=== PATIENT | female | born 1995 | race Caucasian/White ===

== ENCOUNTER 2019-10-08 17:25 | Emergency (ER) | payer OTHER ==
[2019-10-08] MEDS ORDERED: predniSONE 20 MG TABLET (UD) PO ONE (18:05)
[2019-10-08] MEDS ORDERED: diphenhydrAMINE HCL 25 MG CAPSULE (FP) PO ONE ×2 (18:05→19:05)
[2019-10-08 18:08] VITALS: BP 109/72; PULSE 94; TEMP 98.3; BMI 20.1
--- NOTE | 2019-10-08 18:09 | PDOC ---
Rapid Medical Evaluation Time Seen by Provider: 10/08/19 18:04 Medical Evaluation: 10/08/19 18:06 CC: swollen R eye Pt is a 24 y/o female who presents with a swollen right eye and a large wheal on her R arm. She does not know of any contacts, detergents, foods that could have caused this. She denies any tongue/mouth swelling or difficulty breathing. Brief exam: R eye with lower lid edema, EOMI, R arm with large wheal appreciated. No stridor. Good air entry b/l with no adventitious lung sounds Orders: Benadryl, Prednisone To ED for further evaluation Discharge Disposition - Diagnosis Allergic reaction - Referrals - Patient Instructions - Post Discharge Activity
[2019-10-08] MEDS ORDERED: predniSONE 20 MG TABLET (UD) ONE (19:05)
--- NOTE | 2019-10-08 19:10 | PDOC ---
History of Present Illness - General Chief Complaint: Allergic Reaction Stated Complaint: SWOLLEN EYE Time Seen by Provider: 10/08/19 18:04 History Source: Patient - History of Present Illness Initial Comments: 10/08/19 19:15 Chief complaint: Swollen eye and itching Patient is a healthy 24-year-old female who states she woke up this morning with swelling below the right eye. She is developed rash and itching to the right upper arm. No fever, no difficulty breathing, no swelling to the throat. She states she had itching to her back about 2 weeks ago, but it went away on its own and she did not have to see a doctor. Patient has not taken any medicines and has no known allergies GENERAL/CONSTITUTIONAL: No fever, weakness. dizziness HEAD, EYES, EARS, NOSE AND THROAT: No change in vision. No ear pain or discharge. No sore throat. CARDIOVASCULAR: No chest pain RESPIRATORY: No shortness of breath or cough GASTROINTESTINAL: No pain, nausea, vomiting, diarrhea or constipation GENITOURINARY: No dysuria MUSCULOSKELETAL: No neck or back pain SKIN: + Itchy rash NEUROLOGIC: No headache, vertigo, loss of consciousness, or loss of sensation. GENERAL: The patient is awake, alert, and fully oriented, in no acute distress. HEAD: Normal with no signs of trauma. EYES: Pupils equal, round and reactive to light, sclera anicteric, conjunctiva clear. Some swelling to the lower right eyelid ENT: pharynx: no erythema, no exudate, uvula midline NECK: supple CHEST: clear, nontender, rr ABD: soft, nontender BACK: no tenderness or signs of injury EXTREMITIES: Right upper extremity with hives, blanchable, no gross swelling. Rest of extremities, normal range of motion, no edema. NEUROLOGICAL: Normal speech, normal gait. SKIN: Warm, Dry Past History - Past Medical History Allergies/Adverse Reactions: Allergies Allergy/AdvReac Type Severity Reaction Status Date / Time No Known Allergies Allergy Verified 10/08/19 18:08 Home Medications: Ambulatory Orders predniSONE [Deltasone -] 40 mg PO DAILY #8 tablet 10/08/19 COPD: No - Psycho Social/Smoking Cessation Hx Smoking History: Never smoked *Physical Exam - Vital Signs Last Vital Signs Temp Pulse Resp BP Pulse Ox 98.3 F 94 H 20 109/72 98 10/08/19 18:05 10/08/19 18:05 10/08/19 18:05 10/08/19 18:05 10/08/19 18:05 ED Treatment Course - Medications Given in the ED: ED Medications Discontinued Medications Generic Name Dose Route Start Last Admin Trade Name Harvinder PRN Reason Stop Dose Admin Diphenhydramine HCl 50 mg 10/08/19 18:05 10/08/19 19:09 Benadryl - PO 10/08/19 18:06 50 mg ONCE ONE Administration Prednisone 60 mg 10/08/19 18:05 10/08/19 19:09 Deltasone - PO 10/08/19 18:06 60 mg ONCE ONE Administration Medical Decision Making - Medical Decision Making 10/08/19 19:18 Healthy 24-year-old female that had some itching to her back and rash 2 weeks ago now with swelling under the right eye and areas of hives to the right upper extremity. No respiratory involvement, no difficulty in speaking and no tightness in her throat. Patient was ordered Benadryl 50 and prednisone 60 mg from triage. Will observe and reassess Patient feels better, symptoms are improving. Discussed issues, findings, results, applicable medications and treatments and follow-up. All these were understood and all questions were answered 10/08/19 20:01 Discharge - Discharge Information Problems reviewed: Yes Clinical Impression/Diagnosis: Allergic reaction Qualifiers: Encounter type: initial encounter Qualified Code(s): T78.40XA - Allergy, unspecified, initial encounter Condition: Stable Disposition: HOME - Admission No - Additional Discharge Information Prescriptions: predniSONE [Deltasone -] 40 mg PO DAILY #8 tablet - Follow up/Referral Referrals: ON STAFF,NOT [Primary Care Provider] - - Patient Discharge Instructions Patient Printed Discharge Instructions: DI for General Allergic Reactions Additional Instructions: Take benadryl 25-50 mg every 4 hours for itching take prednisone 40 mg once daily for anther 4 days, start tomorrow take pepcid 20 mg once daily which will help with the reaction and protect your stomach for any upset from the prednisone return to the er if short of breath, difficulty breathing, or getting worse. otherwise follow up with your doctor in 2-3 days - Post Discharge Activity
== END 2019-10-08 20:09 | disposition home or self-care (01) ==
LOC: JERFT 17:25
DX: T78.40XA Allergy, unspecified, initial encounter (principal); H02.842 Edema of right lower eyelid; L50.9 Urticaria, unspecified; X58.XXXA Exposure to other specified factors, initial encounter
CPT/HCPCS: 99281-25

== ENCOUNTER 2019-11-18 19:47 | Emergency (ER) | payer OTHER ==
[2019-11-18 20:20] VITALS: BP 117/72; PULSE 84; TEMP 97.9; BMI 19.8
--- NOTE | 2019-11-18 21:56 | PDOC ---
History of Present Illness - General Chief Complaint: Cold Symptoms Stated Complaint: SICK Time Seen by Provider: 11/18/19 21:56 History Source: Patient - History of Present Illness Initial Comments: 11/18/19 21:57 Chief complaint: Cold symptoms Patient is a healthy 24-year-old female with 1 day of cold symptoms, patient had a fever last night, none today she has a runny nose and cough and she states it hurts when she coughs. Patient is eating and drinking and does not appear acutely ill. GENERAL/CONSTITUTIONAL: No fever, weakness. dizziness HEAD, EYES, EARS, NOSE AND THROAT: No change in vision. No ear pain or discharge. No sore throat. CARDIOVASCULAR: No chest pain RESPIRATORY: No shortness of breath or cough GASTROINTESTINAL: No pain, nausea, vomiting, diarrhea or constipation GENITOURINARY: No dysuria MUSCULOSKELETAL: No neck or back pain SKIN: No rash NEUROLOGIC: No headache, vertigo, loss of consciousness, or loss of sensation. GENERAL: The patient is awake, alert, and fully oriented, in no acute distress. HEAD: Normal with no signs of trauma. EYES: Pupils equal, round and reactive to light, sclera anicteric, conjunctiva clear. ENT: pharynx: no erythema, no exudate, uvula midline NECK: supple CHEST: clear, nontender, rr ABD: soft, nontender BACK: no tenderness or signs of injury EXTREMITIES: Normal range of motion, no edema. NEUROLOGICAL: Normal speech, normal gait. SKIN: Warm, Dry Past History - Past Medical History Allergies/Adverse Reactions: Allergies Allergy/AdvReac Type Severity Reaction Status Date / Time No Known Allergies Allergy Verified 11/18/19 20:20 Home Medications: Ambulatory Orders predniSONE [Deltasone -] 40 mg PO DAILY #8 tablet 10/08/19 COPD: No - Psycho Social/Smoking Cessation Hx Smoking History: Never smoked Have you smoked in the past 12 months: No Information on smoking cessation initiated: No Hx Alcohol Use: No Drug/Substance Use Hx: No *Physical Exam - Vital Signs Last Vital Signs Temp Pulse Resp BP Pulse Ox 97.9 F 84 18 117/72 100 11/18/19 20:17 11/18/19 20:17 11/18/19 20:17 11/18/19 20:17 11/18/19 20:17 Medical Decision Making - Medical Decision Making 11/18/19 21:58 Patient with fever last night, no fever today, has cold symptoms. Patient does not appear acutely ill she is not coughing during the exam and she has an otherwise normal exam for except for nasal congestion. Patient is eating and drinking. Patient is mostly concerned to see if she has "coronavirus". She wanted to get a test. I explained to her that there is no test give her in the ER. it was explained to patient that she screen negative but that if she felt sick she should stay home. She will be given information regarding Department of Health to call if she has any other questions. Discussed issues, findings, results, applicable medications and treatments and follow-up. All these were understood and all questions were answered 11/18/19 21:59 Discharge - Discharge Information Problems reviewed: Yes Clinical Impression/Diagnosis: Upper respiratory infection Qualifiers: URI type: unspecified URI Qualified Code(s): J06.9 - Acute upper respiratory infection, unspecified Condition: Stable Disposition: HOME - Admission No - Follow up/Referral Referrals: ON STAFF,NOT [Primary Care Provider] - - Patient Discharge Instructions Patient Printed Discharge Instructions: DI for Viral Upper Respiratory Infection -- Adult Additional Instructions: Drink 2-3 L of water daily Take Tylenol 650 mg every 4 hours or Motrin 600 mg every 6 hours for fever and pain Return to the nearest ER if short of breath, unable to swallow or feeling sicker Followup with your doctor in one to 2 days You can call the Department of Health at [phone] regarding any other questions you have regarding coronavirus - Post Discharge Activity
== END 2019-11-18 22:30 | disposition home or self-care (01) ==
LOC: JERFT 19:47
DX: J06.9 Acute upper respiratory infection, unspecified (principal)
CPT/HCPCS: 99281-25

== ENCOUNTER 2020-04-11 07:43 | Emergency (ER) | payer OTHER ==
--- NOTE | 2020-04-11 07:54 | PDOC ---
Rapid Medical Evaluation Chief Complaint: Pain Time Seen by Provider: 04/11/20 07:52 Medical Evaluation: Allergies Allergy/AdvReac Type Severity Reaction Status Date / Time No Known Allergies Allergy Verified 11/18/19 20:20 04/11/20 07:52 CC: low abd pain pain x 7 days, no relief with motrin, lmp in february Exam: mid suprapubic tenderness, no distention Plan: urine Discharge Disposition - Diagnosis Abdominal pain - Referrals - Patient Instructions - Post Discharge Activity
[2020-04-11 07:55] VITALS: TEMP 98.5; BMI 19.8
[2020-04-11] MEDS ORDERED: ACETAMINOPHEN 325 MG TABLET (FP) PO ONE (08:19)
[2020-04-11] MEDS ORDERED: ACETAMINOPHEN 325 MG TABLET (FP) ONE (08:30)
[2020-04-11 08:38] LABS: HCG,QUALITATIVE URINE Positive; PH,URINE 5.5 (5.0-8.0); URINE APPEARANCE CLEAR; URINE BILIRUBIN NEGATIVE (NEGATIVE); URINE COLOR YELLOW; URINE GLUCOSE (UA) NEGATIVE (NEGATIVE); URINE KETONE NEGATIVE (NEGATIVE); URINE LEUK ESTERASE NEGATIVE (NEGATIVE); URINE NITRITE NEGATIVE (NEGATIVE); URINE PROTEIN NEGATIVE (NEGATIVE); URINE UROBILINOGEN 0.2 mg/dL (0.2-1.0)
[2020-04-11] MEDS ORDERED: DEXTROSE 5%-NORMAL SALINE 1,000 ML IV STA (08:38)
--- NOTE | 2020-04-11 08:50 | PDOC ---
History of Present Illness - General Chief Complaint: Pain Stated Complaint: ABD PAIN Time Seen by Provider: 04/11/20 07:52 History Source: Patient Exam Limitations: Language Barrier (Central African) - History of Present Illness Initial Comments: 04/11/20 08:45 Isabella Agudelo is an otherwise healthy Central African-speaking 25F presenting with suprapubic pain. Patient reports 7 days of constant lower abdominal pain, described as period cramping but worse, not relieved by Motrin. Denies vaginal bleeding or discharge, urinary sx, N/V/C/D, fevers/chills, chest pain, SOB, back pain. LMP in February, did not have a period in March, over due. Denies OCP/IUD/condom use, has had unprotected sex multiple times in the last 2 months. Never been , denies ever having any STI. 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 Able to eat and drink well, just complains of severe lower abdominal pain. No sick contacts or spoiled food ingestion. NKDA. No meds taken. No PSH. Denies alcohol/drugs/tobacco. Past History - Medical History Allergies/Adverse Reactions: Allergies Allergy/AdvReac Type Severity Reaction Status Date / Time No Known Allergies Allergy Verified 11/18/19 20:20 Home Medications: Ambulatory Orders Ibuprofen 400 mg PO BID 04/11/20 COPD: No - Psycho-Social/Smoking History Smoking History: Never smoked Have you smoked in the past 12 months: No Review of Systems - Review of Systems Able to Perform ROS?: Yes Constitutional: No: Symptoms Reported HEENTM: No: Symptoms Reported Respiratory: No: Symptoms reported Cardiac (ROS): No: Symptoms Reported ABD/GI: No: Symptoms Reported, Constipated, Diarrhea, Nausea, Poor Appetite, Poor Fluid Intake, Vomiting : No: Burning, Dysuria, Discharge, Frequency, Flank Pain, Hematuria Musculoskeletal: No: Symptoms Reported Integumentary: No: Symptoms Reported Neurological: No: Symptoms reported Endocrine: No: Symptoms Reported Hematologic/Lymphatic: No: Symptoms Reported All Other Systems: Reviewed and Negative *Physical Exam - Vital Signs Last Vital Signs Temp Pulse Resp BP Pulse Ox 98.5 F 87 16 113/74 99 04/11/20 07:47 04/11/20 07:47 04/11/20 07:47 04/11/20 07:47 04/11/20 07:47 - Physical Exam General Appearance: Yes: Nourished, Appropriately Dressed, Mild Distress, Thin, Other (unfomfortable appearing in chair) HEENT: positive: EOMI, JUAREZ, Normal Voice, Symmetrical, Hearing Grossly Normal. negative: Scleral Icterus (R), Scleral Icterus (L), Muffled/Hoarse voice, Pharyngeal Erythema, Tonsillar Exudate, Tonsillar Erythema Neck: positive: Trachea midline, Normal Thyroid, Supple. negative: Tender, Rigid, Lymphadenopathy (R), Lymphadenopathy (L), Tender lateral, Tender midline Respiratory/Chest: positive: Lungs Clear, Normal Breath Sounds. negative: Chest Tender, Respiratory Distress, Accessory Muscle Use, Labored Respiration, Crackles, Rales, Rhonchi, Stridor, Wheezing Cardiovascular: positive: Regular Rhythm, Regular Rate. negative: Murmur Female Pelvic Exam: positive: normal external exam, cervical os closed, normal adnexa, normal size ovaries. negative: CMT, discharge, adnexal tenderness, vaginal bleeding Gastrointestinal/Abdominal: positive: Normal Bowel Sounds, Tender (L>R suprapubic), Flat, Soft. negative: Pulsatile Mass, Distended, Guarding, Rebound, Hernia Musculoskeletal: positive: Normal Inspection. negative: CVA Tenderness, CVA Tenderness (R), CVA Tenderness (L), Decreased Range of Motion, Vertebral Tenderness Extremity: positive: Normal Capillary Refill, Normal Inspection, Normal Range of Motion, Pelvis Stable. negative: Tender, Pedal Edema, Swelling, Calf Tenderness Integumentary: positive: Normal Color, Dry, Warm Neurologic: positive: Fully Oriented, Alert, Normal Mood/Affect, Normal Response ED Treatment Course - LABORATORY CBC & Chemistry Diagram: 04/11/20 08:30 04/11/20 08:30 - ADDITIONAL ORDERS Additional order review: Laboratory Results 04/11/20 08:13 Urine Color Yellow Urine Appearance Clear Urine pH 5.5 Ur Specific [place] 1.022 Urine Protein Negative Urine Glucose (UA) Negative Urine Ketones Negative Urine Blood Negative Urine Nitrite Negative Urine Bilirubin Negative Urine Urobilinogen 0.2 Ur Leukocyte Esterase Negative Urine HCG, Qual Positive Medical Decision Making - Medical Decision Making 04/11/20 08:51 Patient is otherwise healthy but presents with suprapubic pain in the setting of unprotected intercourse and missed period last month. Concern for /ectopic, ovarian cyst, UTI, STI. Ordered UA/UPREG, UA clean but UPREG positive. Ordering CMP/CBC/T&S/beta quant, and Tylenol for pain. Will perform pelvic exam and get TVUS to evaluate for IUP vs. ectopic. 04/11/20 09:24 Pelvic exam grossly normal. Bedside FAST negative. Bedside US of uterus shows IUP, but will confirm with TVUS. Sending patient to US now. 04/11/20 11:04 US shows possible IUP consistent with 4w4d, yolk sac but no pole, may be too soon. Labs notable for: - CBC WNL - CMP WNL - UA clean Patient eligible for discharge with OBGYN follow-up for early IUP. Will discuss with patient and discharge home with Tylenol for pain control. Discharge - Discharge Information Problems reviewed: Yes Clinical Impression/Diagnosis: Suprapubic pain, acute Qualifiers: Weeks of gestation: less than 8 weeks Qualified Code(s): Z3A.01 - Less than 8 weeks gestation of Condition: Guarded Disposition: HOME - Admission No - Follow up/Referral Referrals: ON STAFF,NOT [Primary Care Provider] - Calin Hand MD [Staff Physician] - Terri Villasenor MD [Staff Physician] - Luis Angel Lopez MD [Staff Physician] - - Patient Discharge Instructions Patient Printed Discharge Instructions: DI for Vaginal Bleeding During Additional Instructions: Hoy fuiste evaluado por dolor abdominal bajo. Esparza prueba de embarazo de hoy muestra que est embarazada, aixa esparza ultrasonido muestra que tiene alrededor de 4 semanas. Debe mj a un OBGYN en la prxima semana para recibir ms atencin, y le hemos derivado a varios mdicos que puede consultar. [place] Tylenol segn sea necesario para controlar el dolor. Esparza nmero de HCG en el embarazo es [id number], si esparza doctor pregunta. Si experimenta un empeoramiento del dolor, sangrado vaginal, ardor al orinar o cualquier otro sntoma nuevo o preocupante, regrese a la amy de emergencias. Print Language: ALBANIAN - Post Discharge Activity
[2020-04-11 09:20] LABS: BASO % 0.9 % (0-2.0); EOS % 1.1 % (0-4.5); HEMATOCRIT 36.5 % (32.4-45.2); HEMOGLOBIN 12.1 GM/dL (10.7-15.3); LYMPH % 22.7 % (8-40); MCH 30.9 pg (25.7-33.7); MEAN CELL VOLUME 93.5 fl (80-96); MONO % 9.4 % (3.8-10.2); NEUT % 65.9 % (42.8-82.8); PLATELET COUNT 293 K/MM3 (134-434); RDW 12.8 % (11.6-15.6); WHITE BLOOD COUNT 6.6 K/mm3 (4.0-10.0)
--- NOTE | 2020-04-11 09:25 | PDOC ---
Attending Attestation - Resident Resident Name: Santos Mike - ED Attending Attestation I have performed the following: I have examined & evaluated the patient, The case was reviewed & discussed with the resident, I agree w/resident's findings & plan - HPI HPI: 04/11/20 09:21 Isabella Agudelo is an otherwise healthy [place]ian-speaking 25F presenting with suprapubic pain x 7 days of constant lower abdominal pain, described as period cramping but worse, not relieved by Motrin. Denies vaginal bleeding or discharge, urinary sx, N/V/C/D, fevers/chills, chest pain, SOB, back pain. LMP in February, did not have a period in March, over due. Denies OCP/IUD/condom use, has had unprotected sex multiple times in the last 2 months. Never been , denies ever having any STI. Has not seen her clinical director for a while as her doctors are in the [place], unknown if she has ovarian cysts. Able to eat and drink well, just complains of severe lower abdominal pain. No sick contacts or spoiled food ingestion. - Physicial Exam PE: 04/11/20 09:22 Agree with the resident's HPI and PE as documented in the electronic medical record. NAD, well appearing, EOMI, PERRL, nl conjunctiva, anicteric; neck supple. no respiratory distress, abdomen soft nontender. no rebound, guarding. Back nontender. PATEL x4, no focal neuro deficits. No peripheral edema. normal color for ethnicity, WWP. - Medical Decision Making 04/11/20 09:25 Vital Signs Temp Pulse Resp BP Pulse Ox 98.5 F 87 16 113/74 99 04/11/20 07:47 04/11/20 07:47 04/11/20 07:47 04/11/20 07:47 04/11/20 07:47 vitals reviewed wnl pelvic exam by resident, unremarkable. abdomen soft and nontender. 04/11/20 11:13 DDx female VB: ectopic , miscarriage, demise, subchorionic hematoma, retained POC, normal first trimester bleeding, UTI in in . Fibroid uterus, vaginitis, infection, electrolyte/metabolic derangements, anemia. Rh positive, no rhogam indicated VS wnl, normotensive, no tachy or hypoxia/respiratory distress. abdomen benign on reeval and no peritoneal findings, no VB here, controlled Laboratory results are within normal limits, urinalysis is negative for infection, follow-up TVUS Possible early IUP, follow-up ultrasound and beta-hCG trending. Her beta- hCG is at 5700 Dispo: OB followup, bleeding precautions; return to ED if persistent and heavy vaginal bleeding, persistent pelvic pain not relieved by your prescribed medications, dizziness, shortness of breath, new and persistent fevers, other foul smelling discolored vaginal discharge, or for any other concerns. 04/11/20 11:14 04/11/20 11:46 Discharge - Discharge Information Problems reviewed: Yes Clinical Impression/Diagnosis: Suprapubic pain, acute Qualifiers: Weeks of gestation: less than 8 weeks Qualified Code(s): Z3A.01 - Less than 8 weeks gestation of Condition: Guarded Disposition: HOME - Admission No - Follow up/Referral Referrals: Terri Villasenor MD [Staff Physician] - Calin Hand MD [Staff Physician] - ON STAFF,NOT [Primary Care Provider] - Luis Angel Lopez MD [Staff Physician] - - Patient Discharge Instructions Patient Printed Discharge Instructions: DI for Vaginal Bleeding During Pregnanc y Additional Instructions: Hoy fuiste evaluado por dolor abdominal bajo. Esparza prueba de embarazo de hoy muestra que est embarazada, aixa esparza ultrasonido muestra que tiene alrededor de 4 semanas. Debe mj a un OBGYN en la prxima semana para recibir ms atencin, y le hemos derivado a varios mdicos que puede consultar. [place] Tylenol segn sea necesario para controlar el dolor. Si experimenta un empeoramiento del dolor, sangrado vaginal, ardor al orinar o cualquier otro sntoma nuevo o preocupante, regrese a la amy de emergencias. Print Language: ETHIOPIAN - Post Discharge Activity
[2020-04-11 09:41] LABS: INR 1.24 (0.83-1.09); PROTHROMBIN TIME (PATIENT) 14.7 SEC (9.7-13.0)
[2020-04-11 09:43] LABS: ACTIVATED PTT 33.6 SECONDS (25.2-36.5)
[2020-04-11 10:07] LABS: BILIRUBIN,TOTAL 0.3 mg/dL (0.2-1); BLOOD UREA NITROGEN 16.6 mg/dL (7-18); CALCIUM 8.7 mg/dL (8.5-10.1); CREATININE 0.6 mg/dL (0.55-1.3); POTASSIUM 4.5 mmol/L (3.5-5.1); TOT PROT 7.2 g/dl (6.4-8.2)
[2020-04-11 12:52] VITALS: BP 112/69; PULSE 92
== END 2020-04-11 12:53 | disposition home or self-care (01) ==
LOC: JER 07:43
PROC: 3E0337Z Introduction of Electrolytic and Water Balance Substance into Peripheral Vein, Percutaneous Approach (ICD-10-PCS; principal; 2020-04-11)
DX: R10.30 Lower abdominal pain, unspecified (principal); Z3A.01 Less than 8 weeks gestation of pregnancy
CPT/HCPCS: 36415; 76817-TC; 80053; 81003; 84702; 84703; 85025; 85610; 85730; 86850; 86900; 86901; 87086; 99284-25

== ENCOUNTER 2020-05-08 00:45 | Emergency (ER) | payer OTHER ==
[2020-05-08 01:34] VITALS: TEMP 99.2; BMI 20.7
--- NOTE | 2020-05-08 02:26 | PDOC ---
History of Present Illness - General Chief Complaint: Pain, Acute Stated Complaint: ABD PAIN/8WKS Time Seen by Provider: 05/08/20 01:27 History Source: Patient Exam Limitations: No Limitations - History of Present Illness Initial Comments: 25F currently at 9 weeks gestation and without significant PMH presents to the ED with 1 day of abdominal pain that's constant. She localizes the pain to the LLQ and radiates to the back and bilateral flanks. The pain is constant but severity fluctuates, currently pain free. Denies fever, N/V/D/C, dysuria, vaginal bleeding or discharge. PMH: as in HPI SH: see below Meds: vitamins Allergies: NKDA Tob/Etoh/Rec drugs: negx3 ROS GENERAL/CONSTITUTIONAL: No fever or chills. No weakness. HEENT: No change in vision. No ear pain or discharge. No sore throat. CARDIOVASCULAR: No chest pain or shortness of breath RESPIRATORY: No cough, wheezing, or hemoptysis GASTROINTESTINAL: No nausea, vomiting, diarrhea or constipation GENITOURINARY: No dysuria, frequency, or change in urination MUSCULOSKELETAL: No joint or muscle swelling or pain. No neck or back pain SKIN: No rash NEUROLOGIC: No headache, vertigo, loss of consciousness, or change in strength/sensation ENDOCRINE: No increased thirst. No abnormal weight change HEMATOLOGIC/LYMPHATIC: No anemia, easy bleeding, or history of blood clots ALLERGIC/IMMUNOLOGIC: No hives or skin allergy PE GENERAL: Awake, alert, and fully oriented, in no acute distress HEAD: No signs of trauma, normocephalic, atraumatic EYES: PERRLA, EOMI, sclera anicteric, conjunctiva clear ENT: Auricles normal inspection, hearing grossly normal, nares patent, oropharynx clear without exudates. Moist mucosa NECK: Normal ROM, supple, no LAD, JVD, or masses HEART: Regular rate and rhythm, normal S1 and S2, no murmurs, rubs or gallops, peripheral pulses normal and equal bilaterally. LUNGS: No distress, speaks full sentences, clear to auscultation bilaterally ABDOMEN: Soft, nontender, normoactive bowel sounds. No guarding, no rebound. No masses EXTREMITIES: Normal inspection, Normal range of motion, no edema. No clubbing or cyanosis. NEUROLOGICAL: CNII-XII grossly intact. Normal speech, normal gait, no focal sensorimotor deficits SKIN: Warm, Dry, normal turgor, no rashes or lesions noted PELVIC: unremarkable exam, no vaginal discharge or bleeding, no cervical motion tenderness Assessment and Plan 1. UTI 2. Pyelonephritis Tyrell Catherine, PGY1 Emergency Medicine 05/08/20 04:57 Past History - Medical History Allergies/Adverse Reactions: Allergies Allergy/AdvReac Type Severity Reaction Status Date / Time No Known Allergies Allergy Verified 11/18/19 20:20 Home Medications: Ambulatory Orders Ibuprofen 400 mg PO BID 04/11/20 COPD: No - Reproductive History Is Patient Now?: Yes - Immunization History Immunization Up to Date: Yes - Psycho-Social/Smoking History Smoking History: Never smoked Have you smoked in the past 12 months: No - Substance Abuse Hx (Audit-C & DAST Scrn) How often the patient has a drink containing alcohol: Never Score: In Men: 4 or > Positive; In Women: 3 or > Positive: 0 Screen Result (Pos requires Nsg. Audit-10AR): Negative *Physical Exam - Vital Signs Last Vital Signs Temp Pulse Resp BP Pulse Ox 99.2 F 99 H 17 117/76 100 05/08/20 01:27 05/08/20 01:27 05/08/20 01:27 05/08/20 01:27 05/08/20 01:27 ED Treatment Course - RADIOLOGY Radiology Studies Ordered: TVUS Radiograph Interpretation: TVUS FINDINGS: Transabdominal pelvic ultrasound: No masses identified. Endovaginal pelvic ultrasound: Uterus is anteverted and measures 9.1 centimeters in length. The endometrium is 2 millimeters in thickness. There are no fibroids. The right ovary measures 3.8 centimeters in length, appears normal and demonstrates normal flow. Left ovary measures 3.4 centimeters in length, appears normal and demonstrates normal flow. There is no significant free fluid. Pelvic duplex: There is normal arterial and venous flow in both ovaries. IMPRESSION: Normal exam. THIS DOCUMENT HAS BEEN ELECTRONICALLY SIGNED Yg Ross MD 05/08/2020 02:34 EST Medical Decision Making - Medical Decision Making 25F currently at 9 weeks gestation and without significant PMH presents to the ED with 1 day of LLQ abdominal pain that's constant and radiates to the back and bilateral flanks. Denies fever, N/V/D/C, dysuria, vaginal bleeding or discharge. -No CVA or cervical motion tenderness. No vaginal bleeding or discharge from the cervical os. -UA negative DDx: 1. UTI - unlikely, no dysuria, and negative UA 2. Pyelonephritis - pt stated that pain radiated to flanks, but no CVA tenderness and UA neg, unlikely 3. - FHR 170s, intact IUP, no vaginal bleeding, closed cervical os; very unlikely TVUS negative Pt did not have pain while in the ED. Pt stable for discharge. Advised to follow up with OBGYN. Discharge - Discharge Information Problems reviewed: Yes Clinical Impression/Diagnosis: Qualifiers: Weeks of gestation: 9 weeks Qualified Code(s): Z3A.09 - 9 weeks gestation of Condition: Stable Disposition: HOME - Admission No - Follow up/Referral - Patient Discharge Instructions Patient Printed Discharge Instructions: DI for Abdominal Pain -- Early Additional Instructions: You were seen in the ED for complaints of abdominal pain. In the ED you were evaluated with pelvic ultrasound. Your results were normal, the baby is healthy. There does not appear to be an acute need for immediate hospitalization. You are advised to follow up with your OBGYN within 1 week. You can take tylenol for the pain. Return to the ED immediately if you experience abdominal pain with vaginal bleeding. Lo vieron en el servicio de urgencias por quejas de dolor abdominal. En el servicio de urgencias te evaluaron con miriam ecografa plvica. Zuri resultados fueron normales, el beb est tyree. No parece marva miriam necesidad aguda de hospitalizacin inmediata. Se le recomienda hacer un seguimiento con [facility] dentro de miriam semana. Puede carly tylenol para el dolor. Regrese a la amy de emergencias de inmediato si experimenta dolor abdominal con sangrado vaginal. Print Language: SPA - Post Discharge Activity
--- NOTE | 2020-05-08 02:53 | PDOC ---
Documentation entered by Louise Segovia SCRIBE, acting as scribe for Eliana Greer MD. Eliana Greer MD: This documentation has been prepared by the Juliette anglin Sydney, SCRIBE, under my direction and personally reviewed by me in its entirety. I confirm that the documentation accurately reflects all work, treatment, procedures, and medical decision making performed by me. Attending Attestation - Resident Resident Name: Tyrell Catherine - ED Attending Attestation I have performed the following: I have examined & evaluated the patient, The case was reviewed & discussed with the resident, I agree w/resident's findings & plan, Exceptions are as noted - HPI HPI: 05/08/20 02:46 25 yo F ~8 weeks p/w LLQ abdominal pain x2 days, constant but waxin and waning. Denies n/v/d or constipation. Denies vaginal bleeding or discharge. Denies urinary complaints. Denies fevers. - Physicial Exam PE: 05/08/20 02:47 General: well appearing Abdomen: soft, mild suprapubic ttp, no rebound, no guarding, negative mcburney's, negative duvall's - Medical Decision Making 05/08/20 02:48 25 yo F with llq pain, mild suprapubic ttp but otherwise unremarkable exam, no COAL INSPECTOR complaints, possible UTI vs. kidney stone vs. unlikely torsion as patient very comfortable appearing and given duration of symptoms. Doubt diverticulitis as no change in bowel habit and no llq tenderness on exam. Also doubt TOA as patient without vaginal pain or discharge. Previous sono without IUP so will r/o ectopic. Plan: -urine -pain control as needed -Pelvic ultrasound -reassess This clinical encounter is taking place during a federal and state health care emergency attributable to the novel [place] Virus pandemic. The [employer] of the Department of Health and Human Services has declared, pursuant to the Public Health Service Act 319F-3 (42 U.S.C. 247d-6d), that a covered persons activities related to medical countermeasures against COVID-19 will be immune from liability under Federal and State law. 05/08/20 05:03 UA unremarkable. Sono confirms IUP with good FHR. Patient reports resolution of pain without any intervention. Will d/c with return precautions, recommend COAL INSPECTOR f/u. Discharge - Discharge Information Problems reviewed: Yes Clinical Impression/Diagnosis: Qualifiers: Weeks of gestation: 9 weeks Qualified Code(s): Z3A.09 - 9 weeks gestation of Condition: Stable Disposition: HOME - Follow up/Referral - Patient Discharge Instructions Patient Printed Discharge Instructions: DI for Abdominal Pain -- Early Additional Instructions: You were seen in the ED for complaints of abdominal pain. In the ED you were evaluated with pelvic ultrasound. Your results were normal, the baby is healthy. There does not appear to be an acute need for immediate hospitalization. You are advised to follow up with your OBGYN within 1 week. You can take tylenol for the pain. Return to the ED immediately if you experience abdominal pain with vaginal bleeding. Lo vieron en el servicio de urgencias por quejas de dolor abdominal. En el servicio de urgencias te evaluaron con miriam ecografa plvica. Zuri resultados fueron normales, el beb est tyree. No parece marva miriam necesidad aguda de hospitalizacin inmediata. Se le recomienda hacer un seguimiento con [facility] dentro de miriam semana. Puede carly tylenol para el dolor. Regrese a la amy de emergencias de inmediato si experimenta dolor abdominal con sangrado vaginal. Print Language: SPA - Post Discharge Activity
[2020-05-08 04:32] LABS: PH,URINE 6.5 (5.0-8.0); URINE APPEARANCE CLEAR; URINE BILIRUBIN NEGATIVE (NEGATIVE); URINE COLOR YELLOW; URINE GLUCOSE (UA) NEGATIVE (NEGATIVE); URINE KETONE NEGATIVE (NEGATIVE); URINE LEUK ESTERASE NEGATIVE (NEGATIVE); URINE NITRITE NEGATIVE (NEGATIVE); URINE PROTEIN NEGATIVE (NEGATIVE); URINE UROBILINOGEN 0.2 mg/dL (0.2-1.0)
[2020-05-08 05:24] VITALS: BP 111/63; PULSE 89
== END 2020-05-08 05:35 | disposition home or self-care (01) ==
LOC: JER 00:45
DX: O26.891 Other specified pregnancy related conditions, first trimester (principal); Z3A.09 9 weeks gestation of pregnancy
CPT/HCPCS: 76817-TC; 81003; 99284-25

== ENCOUNTER 2020-12-01 11:57 | Emergency (ER) | payer OTHER ==
[2020-12-01 12:08] VITALS: BP 124/76; PULSE 84; TEMP 98.5; BMI 23.6
[2020-12-01] MEDS ORDERED: FLUCONAZOLE 150 MG TABLET PO ONE ×2 (12:50→12:52)
[2020-12-01 13:00] LABS: EPI CELLS 23 /uL (0-25.1); HYALINE CASTS 4 /uL (0-3.1); URINE APPEARANCE TURBID; URINE BACTERIA >9,000 /uL (0-1359); URINE BILIRUBIN NEGATIVE (NEGATIVE); URINE COLOR DK YELLOW; URINE GLUCOSE (UA) NEGATIVE (NEGATIVE); URINE KETONE NEGATIVE (NEGATIVE); URINE LEUK ESTERASE 3+ (NEGATIVE); URINE NITRITE POSITIVE (NEGATIVE); URINE PROTEIN 2+ (NEGATIVE); URINE RBC 426 /uL (0-23.9); URINE UROBILINOGEN 0.2 mg/dL (0.2-1.0); URINE WBC 8868 /uL (0-25.8)
== END 2020-12-01 13:16 | disposition home or self-care (01) ==
LOC: JERFT 11:57
DX: O23.593 Infection of other part of genital tract in pregnancy, third trimester (principal); B37.3 Candidiasis of vulva and vagina; Z3A.28 28 weeks gestation of pregnancy
CPT/HCPCS: 36415; 81003; 84703; 87070; 87086; 87186; 87205; 87491; 87591; 87661; 99283-25